=== PATIENT | female | born 1980 | race Caucasian/White ===

== ENCOUNTER 2024-03-23 08:58 | Day surgery (SDC) | payer BC ==
[2024-03-23] MEDS ORDERED: ACETAMINOPHEN INJECTION 100 ML ONE (09:49)
[2024-03-23] MEDS ORDERED: FAMOTIDINE 20 MG/50 ML IVPB 20 MG/50 ML MG IVPB ONE (09:50)
[2024-03-23] MEDS ORDERED: MAG HYDROX/AL HYDROX/SIMETH 30 ML UNIT-DOSE CUP ONE (09:50)
[2024-03-23 10:00] LABS: BASO % 0.6 % (0-2.0); EOS % 0.4 % (0-4.5); HEMOGLOBIN 13.1 GM/dL (10.7-15.3); INR 1.01 (0.83-1.09); LYMPH % 6.5 % (8-40); MCH 28.7 pg (25.7-33.7); MCHC 32.8 g/dl (32.0-36.0); MEAN CELL VOLUME 87.5 fl (80-96); MEAN PLT VOLUME 8.3 fl (7.5-11.1); MONO % 2.6 % (3.8-10.2); NEUT % 89.9 % (42.8-82.8); PLATELET COUNT 318 10^3/uL (134-434); PROTHROMBIN TIME (PATIENT) 11.4 SEC (9.7-13.0); RBC 4.57 M/mm3 (3.60-5.2); RDW 14.1 % (11.6-15.6)
[2024-03-23] MEDS: FAMOTIDINE 20 MG/50 ML IVPB 20 MG/50 ML MG IVPB ONE (10:02)
[2024-03-23] MEDS: MAG HYDROX/AL HYDROX/SIMETH 30 ML UNIT-DOSE CUP PO ONE (10:02)
[2024-03-23] MEDS: ACETAMINOPHEN 1000 MG/100 ML BAG IVPB ONE (10:02)
[2024-03-23] MEDS: LACTATED RINGERS SOLUTION 1000 ML INFUS.BAG IV ONE (10:02)
[2024-03-23 10:07] LABS: POTASSIUM 3.4 mmol/L (3.5-5.1)
[2024-03-23 10:09] LABS: BLOOD UREA NITROGEN 14.2 mg/dL (7-18); CALCIUM 9.1 mg/dL (8.5-10.1)
[2024-03-23 10:10] LABS: ALBUMIN 3.4 g/dl (3.4-5.0)
[2024-03-23 10:13] LABS: CREATININE 0.9 mg/dL (0.55-1.3)
[2024-03-23 10:14] LABS: BILIRUBIN,TOTAL 0.3 mg/dL (0.2-1); TOT PROT 7.3 g/dl (6.4-8.2)
[2024-03-23 10:41] LABS: ANISOCYTOSIS 0; MACROCYTOSIS 0
[2024-03-23] MEDS ORDERED: KETOROLAC TROMETHAMINE 15 MG/ML VIAL ONE ×2 (10:44→13:13)
[2024-03-23] MEDS: KETOROLAC TROMETHAMINE 15 MG/ML VIAL IVPUSH ONE ×2 (10:49→13:23)
[2024-03-23 11:04] LABS: EPI CELLS 29 /uL (0-25.1); HYALINE CASTS 0 /uL (0-3.1); URINE APPEARANCE CLEAR; URINE BACTERIA 138 /uL (0-1359); URINE BILIRUBIN NEGATIVE (NEGATIVE); URINE COLOR YELLOW; URINE GLUCOSE (UA) NEGATIVE (NEGATIVE); URINE KETONE NEGATIVE (NEGATIVE); URINE LEUK ESTERASE NEGATIVE (NEGATIVE); URINE NITRITE NEGATIVE (NEGATIVE); URINE PROTEIN NEGATIVE (NEGATIVE); URINE RBC 179 /uL (0-23.9); URINE UROBILINOGEN 0.2 mg/dL (0.2-1.0); URINE WBC 27 /uL (0-25.8)
[2024-03-23] MEDS ORDERED: MORPHINE SULFATE 2 MG/ML SYRINGE ONE (11:19)
[2024-03-23] MEDS: morphine CARPU-JECT 2 MG/1 ML DISP.SYRIN IVPUSH ONE (11:26)
[2024-03-23 12:25] LABS: HIV INTERPRETATION NEGATIVE (NEGATIVE)
[2024-03-23] MEDS ORDERED: HYDROmorphone HCl 2 MG/ML VIAL ONE (13:12)
[2024-03-23] MEDS ORDERED: CEFTRIAXONE 1 GM/50 ML BAG ONE (13:13)
[2024-03-23] MEDS: HYDROmorphone HCl 2 MG/ML VIAL IVPUSH ONE (13:23)
[2024-03-23] MEDS: CEFTRIAXONE 1,000 MG in DEXTROSE 5%-WATER - 50 ML IVPB ONE (13:23)
[2024-03-23] MEDS ORDERED: ACETAMINOPHEN 500 MG TABLET (FP) PO PRN (15:01)
[2024-03-23] MEDS ORDERED: MORPHINE SULFATE 2 MG/ML SYRINGE IVPUSH PRN (15:03)
[2024-03-23] MEDS: LACTATED RINGERS SOLUTION 1,000 ML IV SCH (17:33)
[2024-03-23 18:29] VITALS: BMI 28.2
[2024-03-23] MEDS: KETOROLAC TROMETHAMINE 15 MG/ML VIAL IVPUSH PRN (18:44)
[2024-03-23] MEDS: POTASSIUM CHLORIDE ORAL LIQUID 20 MEQ/15 ML PO ONE (19:55)
[2024-03-23] MEDS: TOPIRAMATE 25 MG TABLET PO SCH (21:39)
[2024-03-24 08:24] LABS: BASO % 0.2 % (0-2.0); EOS % 1.1 % (0-4.5); HEMOGLOBIN 11.8 GM/dL (10.7-15.3); LYMPH % 21.4 % (8-40); MCH 28.8 pg (25.7-33.7); MCHC 32.8 g/dl (32.0-36.0); MEAN CELL VOLUME 87.7 fl (80-96); MEAN PLT VOLUME 8.3 fl (7.5-11.1); MONO % 5.8 % (3.8-10.2); NEUT % 71.5 % (42.8-82.8); PLATELET COUNT 274 10^3/uL (134-434); RDW 13.8 % (11.6-15.6); WHITE BLOOD COUNT 10.7 K/mm3 (4.0-10.0)
[2024-03-24 08:27] LABS: INR 1.04 (0.83-1.09); PROTHROMBIN TIME (PATIENT) 11.7 SEC (9.7-13.0)
[2024-03-24 08:41] LABS: ALBUMIN 2.8 g/dl (3.4-5.0); CALCIUM 9.3 mg/dL (8.5-10.1); MAGNESIUM 2.1 mg/dL (1.8-2.4)
[2024-03-24 08:44] LABS: CREATININE 0.9 mg/dL (0.55-1.3)
[2024-03-24 08:45] LABS: PHOSPHOROUS 2.6 mg/dL (2.5-4.9)
[2024-03-24 08:46] LABS: BILIRUBIN,TOTAL 0.3 mg/dL (0.2-1)
[2024-03-24] MEDS: TOPIRAMATE 25 MG TABLET PO SCH (09:35)
[2024-03-24] MEDS: CEFTRIAXONE 1 G/50 ML PREMIX 50 ML IVPB SCH (09:36)
[2024-03-24] MEDS: DEXTROAMPHETAMINE/AMPHETAMINE 10 MG CAP.ER.24H PO SCH (11:14)
[2024-03-24] MEDS ORDERED: MIDAZOLAM HCL 2 MG/2 ML SINGLE DOSE VIAL ONE (12:43)
[2024-03-24] MEDS ORDERED: PROPOFOL 20 ML ONE (12:43)
[2024-03-24] MEDS: ceFAZolin SODIUM 1 GM VIAL IVPB ONE ×2 (12:56)
[2024-03-24] MEDS: LACTATED RINGERS SOLUTION 1,000 ML IV SCH (15:13)
[2024-03-25] MEDS: ELECTROLYTE-148 SOLN 1,000 ML IV SCH (09:05)
[2024-03-25 13:25] LABS: BASO % 0.6 % (0-2.0); EOS % 1.3 % (0-4.5); HEMATOCRIT 36.9 % (32.4-45.2); LYMPH % 22.1 % (8-40); MCH 28.2 pg (25.7-33.7); MCHC 32.5 g/dl (32.0-36.0); MEAN CELL VOLUME 86.9 fl (80-96); MEAN PLT VOLUME 8.8 fl (7.5-11.1); PLATELET COUNT 304 10^3/uL (134-434); RBC 4.25 M/mm3 (3.60-5.2); RDW 14.3 % (11.6-15.6); WHITE BLOOD COUNT 9.1 K/mm3 (4.0-10.0)
[2024-03-25 13:43] LABS: POTASSIUM 3.9 mmol/L (3.5-5.1)
[2024-03-25 13:45] LABS: CALCIUM 9.5 mg/dL (8.5-10.1)
[2024-03-25 13:46] LABS: BLOOD UREA NITROGEN 17.1 mg/dL (7-18)
[2024-03-25 13:49] LABS: CREATININE 0.8 mg/dL (0.55-1.3)
[2024-03-25 13:50] LABS: BILIRUBIN,TOTAL 0.2 mg/dL (0.2-1); TOT PROT 6.5 g/dl (6.4-8.2)
[2024-03-25 14:35] VITALS: BP 130/86; PULSE 85; RESP 20; TEMP 98.2
== END 2024-03-25 18:49 | disposition home or self-care (01) ==
LOC: JER 08:58 → JERBED 13:42 → UNDOADMOB 13:42 → J7W 17:29 → JERBED 17:29 → JASUSAT 03-24 14:42 → J7W 03-24 14:53 → JASUSAT 03-25 18:49
PROVIDERS: ATTEND Nurse Practitioner Family
PROC: 0TC68ZZ Extirpation of Matter from Right Ureter, Via Natural or Artificial Opening Endoscopic (ICD-10-PCS; principal; 2024-03-24 12:00)
PROC: 0T768DZ Dilation of Right Ureter with Intraluminal Device, Via Natural or Artificial Opening Endoscopic (ICD-10-PCS; 2024-03-24 12:00)
DX: N20.1 Calculus of ureter (principal)
CPT/HCPCS: 36415; 74177-TC; 76000-TC-FY; 80053; 81003; 83690; 83735; 84100; 84703; 85025; 85610; 85730; 86803; 86850; 86900; 86901; 87086; 87389; 94760; 99285-25; J0131; Q9967

== ENCOUNTER 2024-07-28 06:39 | Day surgery (SDC) | payer BC ==
[2024-07-23 17:44] VITALS: BMI 28.1
[2024-07-28] MEDS ORDERED: LIDOCAINE HCL/PF 2% SDV 5ML VIAL ONE (07:14)
[2024-07-28] MEDS ORDERED: PROPOFOL 20 ML ONE (07:14)
[2024-07-28] MEDS ORDERED: MIDAZOLAM HCL 2 MG/2 ML SINGLE DOSE VIAL ONE (07:15)
[2024-07-28] MEDS ORDERED: ceFAZolin SODIUM 1 GM VIAL ONE (07:42)
[2024-07-28] MEDS ORDERED: ONDANSETRON 4 MG/2 ML VIAL ONE (07:42)
[2024-07-28] MEDS ORDERED: KETOROLAC TROMETHAMINE 30 MG/1 ML VIAL ONE (07:42)
[2024-07-28] MEDS ORDERED: DEXAMETHASONE SOD PHOSPHATE 4 MG/1 ML VIAL ONE (07:42)
[2024-07-28] MEDS: ceFAZolin SODIUM 1 GM VIAL IVPB ONE ×2 (07:44)
[2024-07-28] MEDS ORDERED: FUROSEMIDE 40 MG/4 ML INJECTABLE VIAL ONE (08:07)
[2024-07-28] MEDS ORDERED: PROMETHAZINE HCL 25 MG/1 ML VIAL IVPB PRN (08:41)
[2024-07-28] MEDS ORDERED: ONDANSETRON 4 MG/2 ML VIAL IVPUSH PRN (08:41)
[2024-07-28] MEDS ORDERED: oxyCODONE HCL 5 MG TABLET PO PRN ×2 (08:41)
[2024-07-28] MEDS: hydrALAZINE HCL 20 MG/ML VIAL IVPUSH SCH (08:47)
[2024-07-28] MEDS: ACETAMINOPHEN INJECTION 100 ML ONE (09:06)
[2024-07-28] MEDS: ACETAMINOPHEN 1000 MG/100 ML BAG IVPB ONE (09:06)
[2024-07-28] MEDS: LACTATED RINGERS SOLUTION 1,000 ML IV SCH (09:30)
[2024-07-28] MEDS ORDERED: oxyCODONE HCL 5 MG TABLET ONE ×2 (10:25→11:36)
[2024-07-28 10:30] VITALS: RESP 20
[2024-07-28 12:52] VITALS: BP 138/88; PULSE 78; TEMP 98.2
[2024-08-05 17:09] LABS: CA OXALATE MONOHYDR. 20 % (.); SIZE 2x2 mm (.); WEIGHT 40 mg (.)
== END 2024-07-28 12:25 | disposition home or self-care (01) ==
LOC: JASU-SURG 06:39
PROVIDERS: ATTEND Urology
PROC: 0T778DZ Dilation of Left Ureter with Intraluminal Device, Via Natural or Artificial Opening Endoscopic (ICD-10-PCS; 2024-07-28)
PROC: 0TC18ZZ Extirpation of Matter from Left Kidney, Via Natural or Artificial Opening Endoscopic (ICD-10-PCS; principal; 2024-07-28 07:30)
DX: N20.0 Calculus of kidney (principal)
CPT/HCPCS: 52356; C2617; 36415; 76000-TC-FY; 81025; 82360; 88300-TC; 94760; C1758; J0131